=== PATIENT | male | born 1960 | race Caucasian/White ===

== ENCOUNTER → 2024-01-06 10:24 | Outpatient (CLI) | payer OTHER, SELFPAY ==
--- NOTE | 2024-01-06 10:43 | EKG_ITS ---
[place] [address] [address] [place] [id number] Test Date: 2024-01-06 Pat Name: Emilio Romero Department: [facility] Room: Gender: Male Hide Trimmer: NITA : 1960 Requested By: Order Number: [id number] Reading MD: Aries Carver Measurements Intervals [place] Rate: 53 P: 46 [place]: 240 QRS: -20 QRSD: 92 T: 21 QT: 412 QTc: 386 Interpretive Statements Sinus bradycardia with 1st degree AV block Incomplete right bundle branch block Electronically Signed On 01-06-2024 18:26:28 PDT by Aries Carver
[2024-01-06 11:16] LABS: Add Manual Diff / Slide Review NO; Basophils Absolute Auto 100 /uL (0-100); Basophils Percent Auto 0.6 % (0-2); Eosinophils Absolute Auto 300 /uL (0-450); Eosinophils Percent Auto 4.2 % (2-4); Hematocrit 43.2 % (41-53); Hemoglobin 14.8 g/dL (13.5-17.5); Lymphocytes Absolute Auto 1500 /uL (1100-4500); Lymphocytes Percent Auto 19.3 % (25-40); Mean Corpuscular HGB Conc 34.2 % (30-36); Mean Corpuscular Hemoglobin 31.1 PG (26-34); Mean Corpuscular Volume 90.9 fL (80-100); Monocytes Absolute Auto 900 /uL (0-900); Monocytes Percent Auto 11.5 % (3-14); Neutrophils Absolute Auto 5100 /uL (1500-7000); Neutrophils Percent Auto 64.4 % (50-75); Platelet Count 317 X10^3/uL (150-400); Red Blood Cell Count 4.76 X10^6/uL (4.5-5.9); Red Cell Distribution Width 13.3 % (11.6-14.8)
[2024-01-06 11:45] LABS: BUN Creatinine Ratio 14.5 (6-22); Blood Urea Nitrogen 17 mg/dL (9-20); Calcium 9.6 mg/dL (8.4-10.2); Carbon Dioxide 28 mmol/L (22-32); Chloride 102 mmol/L (98-107); Estimated Glomerular Filt Rate > 60 mL/min (>60); Glucose 111 mg/dL (80-110); HEMOLYSIS < 15 (0-50); Potassium 4.8 mmol/L (3.4-5.1); Sodium 135 mmol/L (137-145)
== END ==
PROVIDERS: PCP Physician Assistant Medical; Referring Provider Orthopaedic Surgery; Visit Provider Orthopaedic Surgery
DX: Z01.818 Encounter for other preprocedural examination (principal); Z01.812 Encounter for preprocedural laboratory examination
CPT/HCPCS: 36415; 80048; 85025; 93005

== ENCOUNTER 2024-01-29 09:04 | Day surgery (SDC) | payer OTHER, SELFPAY ==
[2024-01-21 09:50] VITALS: BMI 29.5
[2024-01-29] VITALS (15 sets, daily range): BP systolic 100–141; BP diastolic 63–89; PULSE 59–85; RESP 9–18; TEMP 36.1–36.6; O2SAT 91–98; BMI 29.1
--- NOTE | 2024-01-29 06:40 | DI.RAD.S_ITS ---
PROCEDURE: XR SHOULDER RT 1V INDICATIONS: TSA. TECHNIQUE: 1 view of the shoulder acquired. COMPARISON: [facility] [place], CR, XR SHOULDER 2+ VIEWS RIGHT, 10/13/2023, 15:21. FINDINGS: Bones: Postsurgical changes from right reverse total shoulder arthroplasty with hardware components in expected positions. Soft tissues: Postsurgical changes are seen in the soft tissues surrounding the shoulder. IMPRESSION: Expected immediate postoperative appearance of a reverse total shoulder arthroplasty. Approved by: King Mcdaniel M.D. on 01/29/2024 at 16:18
[2024-01-29] MEDS: ACETAMINOPHEN 325 MG TABLET 975 MG PO (09:44)
[2024-01-29] MEDS: LACTATED RINGERS 1,000 ML 42 ML IV (09:45)
--- NOTE | 2024-01-29 09:47 | SUR.PREOP ---
Tae approx2 inches above right underarm while clipping. Feng OR charge histotechnologist at bedside to view. Also viewed by Dr Wang. No futher orders.
--- NOTE | 2024-01-29 09:52 | SUR.PREOP ---
Block start time 0945 and timeout completed. Monitoring initiated and maintained throughout procedure. Oxygen and medications given per anesthesiologist. Patient remained stable throughout procedure, no adverse reactions noted. Block end time 1003.
--- NOTE | 2024-01-29 10:07 | PM.PREOP ---
Pre-operative Note Interval Note History & Physical reviewed/Exam performed by Physician: Yes Changes to H&P: No
[2024-01-29] MEDS: CEFAZOLIN 2 GM/100 ML PREMIX 100 ML IV ×2 (10:27→13:19)
[2024-01-29] MEDS: TRANEXAMIC ACID 1,000 MG VIAL 1000 MG INJ (10:34)
--- NOTE | 2024-01-29 10:47 | SUR.OPER ---
Beach chair on padded OR bed. Head on gel donut secured with tape over gauze. Non-operative arm secured <90 degrees abduction on padded arm board. Pillow under knees. Safety belt at thigh. Cloth tape over blanket over lower legs.
[2024-01-29] MEDS: BUPIVACAINE 0.25% (PF) 30 ML, EPINEPHrine 0.15 MG INJ (11:01)
--- NOTE | 2024-01-29 11:52 | P.OP_ITS ---
Operative Date/Time/Diagnoses Date of procedure: 01/29/24 Time of procedure: 11:54 Pre-op diagnosis: Right cuff tear arthropathy Post-op diagnosis: same Procedure & Clinicians Procedure: Right reverse total shoulder arthroplasty Same procedure as scheduled: Yes Indications: Indications: This is a 63-year-old male who has rotator cuff arthropathy. Symptoms have been present for years, insidious onset. Patient has failed a reasonable attempt at conservative therapy. After extensive discussion in clinic, they wished to go forward with surgery. Risks and benefits were described including the risk of infection, bleeding, damage to internal structures including nerves. We also discussed the risk of failure of surgery and the need for revision surgery as well as the risk of anesthesia. The patient expressed understanding with these risks and wished to go forward with surgery. 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 The correct right shoulder was identified and marked with my initials. Again we discussed the risks and benefits of surgery and they wished to go forward with surgery. The patient was brought back to the operating room and placed supine on the operating table. Smooth endotracheal intubation was performed by anesthesia. All prominences were padded and they were placed into the beach chair position. Intravenous antibiotics were given. The right shoulder was then prepped with the standard sterile preparation and draping. A time-out was then performed in my initials were again identified on the correct shoulder. 1 g of IV tranexamic acid was given. A standard deltopectoral incision was made. Skin flaps were made. The cephalic vein was identified and retracted laterally. This was protected throughout the remainder of the case. Sharp dissection was made along the deltoid, subacromial and subcoracoid space to release adhesions. The conjoined tendon was identified and the axillary nerve was palpated and continuous using the tug test. It was protected throughout the remainder of the case. A brown retractor was placed underneath the deltoid muscle and a darach retractor underneath the conjoint tendon. The subscapularis muscle was ntoed to be deficient. The anterior circumflex artery and associated veins on the lower border of the subscapularis were identified and tied off using 0-Vicryl. The biceps tendon was identified in the bicipital groove. This was released from its sheath, and taken from its origin on the glenoid and tied into the pectoralis tendon for a solid tenodesis. We then began a subscapularis peel. The subscapularis was tagged with an Ethibond suture. A 360 degree circumferential release of the subscapularis was performed with protection of the axillary nerve. The coracohumeral ligament was released at the base of the coracoid. The shoulder was then dislocated. Osteophytes were removed using combination of rongeur and osteotome. The rotator cuff was noted to be insufficient]. An intramedullary guide was used set at version of 20?. Using an oscillating saw a conservative humeral head cut was made. Impaction reamers were reamed up to a size 4 stem [with a built-in angle 135?]. A neck protector was placed. Attention was then turned to the glenoid. After retacting the humeral head poteriorly a circumferential release was performed of the capsule with protection of the axillary nerve. The labrum was then released starting at the biceps anchor and going around the rim a small amount of triceps was released from the inferior glenoid. A center guide pin was then placed using the guide, followed by Reamer. After adequate cartilage was removed the boss was reamed and the centeral hole was drilled and measured. The base plate was then implanted and screwed into place. The peripheral screws were then sequentially drilled, measured, and placed. A 39 glenosphere was then selected and screwed into place onto the base plate. Turning back to the humerus, the humeral head was delivered and trialed with a [0 concentric]. The arm was taken through range of motion and this was felt to be stable. The trial was then reoved and a dlute Betadine wash was then performed with 1 L of sterile saline. [Before placing the final implant, drill holes were made in the bicipital groove for the subscapularis repair, an sutures were passed through the drill holes.] The final stem was then impacted into the humerus. The shoulder was then reduced and again brought through rage of motion and was felt to be stable. [The subscapularis was then repaired using a modified racking hitch with nice loupes.] The skin was closed wit 2-0 vicryl and [3-0 Monocryl] followed by Aquacel dressing. Patient was awoken fro anesthesia and brought back to the postopertive recover unit without issue. They were placed into a sling. Assisting participation: This operation could not have been safely performed (without compromising the technical results or length of the procedure) without the assistance of a skilled instructor adjunct surgical technician. The instructor adjunct surgical technician was medically necessary for proper positioning, retraction and manipulation of instruments, proper exposure, graft prep, and manipulation of tissue. Complications: none Post-operative Condition: stable Disposition: PACU Plan for aftercare: Postoperative instructions: Sling to remain on for 6 weeks. No external rotation past neutral for 6 weeks. Okay for the sling to come off for shower. Okay to shower over the Aquacel dressing. If any water gets underneath the dressing, remove the dressing. First postoperative visit in 2 weeks.
--- NOTE | 2024-01-29 12:34 | SUR.PHASEI ---
1210 radiology in for x-ray, Dr boles contacted to view x-rays
--- NOTE | 2024-01-29 12:36 | SUR.PHASEI ---
1225 informed pt is to go back to operating room for manipulation of surgical shoulder/ right shoulder
--- NOTE | 2024-01-29 12:41 | SUR.PHASEI ---
1230 pt has not had any water or ice chips is to go back into O.R for manipulation, pt does have feeling in the right arm denies pain is able to wiggle fingers and minimal right arm movement
== END 2024-01-29 16:13 | disposition home or self-care (01) ==
PROVIDERS: PCP Physician Assistant Medical; Referring Provider Family Medicine; Visit Provider Orthopaedic Surgery
PROC: (CPT 23472; principal; 2024-01-29 10:15)
DX: M12.811 Other specific arthropathies, not elsewhere classified, right shoulder (principal); G89.18 Other acute postprocedural pain
CPT/HCPCS: 23472; 64450; 73020; C1776; J0171; J0330; J0690; J1100; J2250; J2405; J2704; J3010

== ENCOUNTER 2024-04-08 11:42 | Inpatient (IN) | payer OTHER, SELFPAY ==
--- NOTE | 2024-04-08 | DI.RAD.S_ITS ---
PROCEDURE: XR SHOULDER RT 1V INDICATIONS: TSA TECHNIQUE: 1 views of the shoulder were acquired. COMPARISON: [facility], CR, XR SHOULDER RT 1V, 01/29/2024, 14:04. FINDINGS: Bones: Right shoulder reverse arthroplasty. Hardware projects in the expected location. No fractures or dislocations. No suspicious bony lesions. Visualized ribs appear intact. Soft tissues: No suspicious soft tissue calcifications. Small foci of gas. Skin staple line is been removed. IMPRESSION: Right shoulder reverse arthroplasty projects in the expected location. Dictated by: Jose Ramon Robertson M.D. on 04/08/2024 at 15:55 Approved by: Jose Ramon Robertson M.D. on 04/08/2024 at 15:57
[2024-04-08 12:13] VITALS: BP 149/98; PULSE 74; RESP 16; TEMP 36.3; O2SAT 95; BMI 29.1
--- NOTE | 2024-04-08 12:14 | PM.PREOP ---
Pre-operative Note Interval Note History & Physical reviewed/Exam performed by Physician: Yes Changes to H&P: No
[2024-04-08] MEDS: LACTATED RINGERS 1,000 ML 42 ML IV ×2 (12:31→14:10)
[2024-04-08] MEDS: CEFAZOLIN 2 GM/100 ML PREMIX 100 ML IV (13:05)
[2024-04-08] MEDS: TRANEXAMIC ACID 1,000 MG VIAL 2000 MG INJ ×2 (13:13→14:10)
--- NOTE | 2024-04-08 13:15 | P.HP_ITS ---
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 [facility] Medical History (Updated 01/21/24 @ 10:09 by Denise Sanders RN) History of COVID-19 (06/2020) Arthritis Abdominal bloating Surgical History (Updated 01/21/24 @ 10:05 by Denise Sanders RN) Hx of repair of right rotator cuff Social History household members: spouse Smoking Status: Never smoker alcohol intake: current Meds Home Medications and Allergies Home Medications Medication Instructions Recorded Confirmed Type ibuprofen 200 mg tablet 400 mg PO DAILY PRN Pain 01/21/24 04/08/24 History Allergies Allergy/AdvReac Type Severity Reaction Status Date / Time No Known Drug Allergies Allergy Verified 04/08/24 12:27 Review of Systems Review of Systems ROS: Yes All systems reviewed with the patient and are negative except as otherwise documented Exam Vital Signs (past 8 hours): - 04/08/24 12:13 Temperature 97.4 F L Pulse Rate 74 Respiratory Rate 16 Blood Pressure 149/98 H Pulse Oximetry 95 Oxygen Delivery Method Room Air Oxygen Delivery Method Room Air Narrative Exam Narrative: HEENT: Head atraumatic eyes anicteric moist mucous membranes Cardiovascular: Palpable peripheral pulses extremities are warm and well perfused Respiratory: Breathing comfortably on room air Psychiatric: Appropriate mood and affect Neuro: No acute deficits Musculoskeletal: Incision intact without any signs of erythema fluctuance or drainage, did not test instability Assessment & Plan Assessment & Plan narrative: 63-year-old male with right shoulder instability after a reverse total shoulder arthroplasty Plan: Plan for reverse total shoulder arthroplasty revision with upsizing of the glenosphere and the polyethylene Time-Based Coding :: [TOTAL MINUTES] spent with patient and on the chart (including review of chart, obtaining history, exam, reviewing outside data, placing orders, documenting exam and treatment plan, and counseling patient) on [DATE].
--- NOTE | 2024-04-08 13:40 | SUR.OPER ---
Beach chair with skytron shoulder positioner. Lower body on padded OR bed. Head in foam padded head cradle, secured with straps. Non-operative arm secured <90 degrees abduction. Pillow under knees. Safety belt at thigh. Cloth tape over blanket over lower legs.
[2024-04-08 14:40] VITALS: BP 159/87; PULSE 95; RESP 16; TEMP 36.2; O2SAT 9
[2024-04-08 14:45] VITALS: BP 140/88; PULSE 98; RESP 13; TEMP 36.2; O2SAT 95
[2024-04-08 14:50] VITALS: BP 134/83; PULSE 99; RESP 17; TEMP 36.2; O2SAT 95
[2024-04-08 15:00] VITALS: BP 140/74; PULSE 98; RESP 12; TEMP 36.2; O2SAT 98
--- NOTE | 2024-04-08 17:13 | P.OP_ITS ---
Operative Date/Time/Diagnoses Date of procedure: 04/08/24 Time of procedure: 17:13 Pre-op diagnosis: Instability after right reverse total shoulder arthroplasty Post-op diagnosis: same Procedure & Clinicians Procedure: Revision of right total shoulder arthroplasty of glenoid and humeral side Same procedure as scheduled: Yes Indications: Indications: This is a 63-year-old male who has instability of his shoulder after a reverse total shoulder arthroplasty. Surgeon: Oliverio Wang Investor Relations Specialist: Rachel Thomas Anesthesia Type: General Operative Notes Findings: Findings: Implants intact, able to dislocate but currently reduced. Closure Type: primary Specimen(s): none sent Prosthetic devices, grafts, tissues, transplants, or devices: Tornier implants Glenosphere: 42 Poly: +6, retentive, 10 degree Estimated Blood Loss (mL): 100 Blood products transfused: none Procedure in detail: Patient was seen in the preoperative holding unit. The correct right shoulder was identified and marked with my initials. Again we discussed the risks and benefits of surgery and they wished to go forward with surgery. The patient was brought back to the operating room and placed supine on the operating table. Smooth endotracheal intubation was performed by anesthesia. All prominences were padded and they were placed into the beach chair position. Intravenous antibiotics were given. The right shoulder was then prepped with the standard sterile preparation and draping. A time-out was then performed in my initials were again identified on the correct shoulder. 1 g of IV tranexamic acid was given. A standard deltopectoral incision was made. Skin flaps were made. The cephalic vein was identified and retracted laterally. This was protected throughout the remainder of the case. Sharp dissection was made along the deltoid, subacromial and subcoracoid space to release adhesions. The conjoined tendon was identified and the axillary nerve was palpated and continuous using the tug test. It was protected throughout the remainder of the case. A brown retractor was placed underneath the deltoid muscle and a darach retractor underneath the conjoint tendon. The subscapularis muscle was ntoed to be deficient. The biceps tendon was identified in the bicipital groove. This was released from its sheath, and taken from its origin on the glenoid and tied into the pectoralis tendon for a solid tenodesis. The coracohumeral ligament was released at the base of the coracoid. The shoulder was then dislocated. Osteophytes were removed using combination of rongeur and osteotome. The rotator cuff was noted to be insufficient. Using combination of drill and a screw, the previous polyethylene was removed from the humerus. Cultures were sent. Attention was then turned to the glenoid. After retracting the humeral head posteriorly a circumferential release was performed of the capsule with protection of the axillary nerve. The glenosphere was then removed using a jig and a new size 42 glenosphere was impacted and screwed into place. Turning back to the humerus, the humeral head was delivered and trialed with a + 6 retentive, 10 degree. The arm was taken through range of motion and this was felt to be stable. The trial was then removed and a dilute Betadine wash was then performed with 1 L of sterile saline. The final stem was then impacted into the humerus. The shoulder was then reduced and again brought through range of motion and was felt to be stable. The deltopectoral interval was then closed with #2 Ethibond. The skin was closed with 2-0 vicryl and 3-0 Monocryl followed by Aquacel dressing. Patient was awoken from anesthesia and brought back to the postoperative recovery unit without issue. They were placed into a sling. Assisting participation: This operation could not have been safely performed (without compromising the technical results or length of the procedure) without the assistance of a skilled assistant passenger locomotive engineer. The assistant passenger locomotive engineer was medically necessary for proper positioning, retraction and manipulation of instruments, proper exposure, graft prep, and manipulation of tissue. Complications: none Post-operative Condition: stable Disposition: PACU Plan for aftercare: Postoperative instructions: Sling to remain on for 6 weeks. No external rotation past neutral for 6 weeks. Okay for the sling to come off for shower. Okay to shower over the Aquacel dressing. If any water gets underneath the dressing, remove the dressing. First postoperative visit in 2 weeks.
== END 2024-04-08 15:07 | disposition home or self-care (01) | DRG 483 ==
PROVIDERS: Admitting Provider Orthopaedic Surgery; PCP Physician Assistant Medical; Referring Provider Orthopaedic Surgery; Visit Provider Orthopaedic Surgery
PROC: 0RPJ0JZ Removal of Synthetic Substitute from Right Shoulder Joint, Open Approach (ICD-10-PCS; principal; 2024-04-08 14:00)
DX: T84.028A Dislocation of other internal joint prosthesis, initial encounter (principal); Z96.611 Presence of right artificial shoulder joint
CPT/HCPCS: 73020; 87070; 87075; 87205; C1776; J0330; J0690; J2250; J2405; J2704; J3010